=== PATIENT | female | born 1985 | race African-American/Black ===

== ENCOUNTER 2018-09-01 18:26 | Emergency (ER) | payer MEDICAID ==
[~2018-09-01] VITALS: Ht 167.6 cm; Wt 120.0 kg
[2018-09-01] MEDS ORDERED: HYDROCODONE/ACETAMINOPHEN 10/325MG TABLET PO ONE (20:00)
[2018-09-01] MEDS ORDERED: DIAZEPAM 5 MG TABLET PO ONE (20:00)
[2018-09-01] MEDS ORDERED: KETOROLAC 60MG/2ML VIAL IM ONE (20:00)
[2018-09-01 22:29] VITALS: BP 155/82
== END 2018-09-01 22:29 | disposition home or self-care (01) ==
LOC: ER 19:05
DX: M62.830 Muscle spasm of back (principal); M54.12 Radiculopathy, cervical region; M79.602 Pain in left arm
CPT/HCPCS: 96372; 99283; J1885; Z7610